=== PATIENT | male | born 1955 | race Caucasian/White ===

== ENCOUNTER 2018-04-13 18:23 | Emergency (ER) | payer MEDICARE ==
[~2018-04-13] VITALS: Ht 185.4 cm; Wt 86.4 kg
[2018-04-14 04:30] VITALS: BP 130/74
== END 2018-04-14 05:55 | disposition home or self-care (01) ==
LOC: EMS 18:25 → EDBD 18:25 → EMS 04-14 05:55
DX: F10.129 Alcohol abuse with intoxication, unspecified (principal); F17.210 Nicotine dependence, cigarettes, uncomplicated; Y90.8 Blood alcohol level of 240 mg/100 ml or more
CPT/HCPCS: 36415; 82948; 99283; G0480